=== PATIENT | female | born 1955 ===

== ENCOUNTER 2023-10-12 10:37 | Outpatient (REF) | payer MEDICAID, SELFPAY ==
[2023-10-12 10:42] LABS: Abs Immature Grans 0.05 10^3/uL (0.0-0.06); Absolute Basophil Count 0.05 10^3/uL (0.0-0.2); Absolute Eosinophil Count 0.02 10^3/uL (0.0-0.7); Absolute Lymphocyte Count 1.48 10^3/uL (1.2-3.4); Absolute Monocyte Count 1.55 10^3/uL (0.1-0.8); Absolute Neutrophil Count 3.42 10^3/uL (1.2-6.7); Basophils % 0.8 %; Eosinophils % 0.3 %; HCT 25.9 % (36.0-46.0); Immature Grans % 0.8 %; Lymphocytes % 22.5 %; MCH 26.8 pg (27.0-33.0); MCHC 30.9 % (32.0-36.0); MCV 87 fL (80-95); MPV 8.4 fL (8.0-11.0); Monocytes % 23.6 %; RBC 2.99 10^6/uL (3.93-5.22); RDW 20.5 % (11.7-14.6); RDW-SD 65.9 fL; WBC 6.57 10^3/uL (4.4-10.8)
[2023-10-12 11:09] LABS: ALT 10 U/L (14-59); AST 18 U/L (15-37); Albumin 2.1 g/dL (3.4-5.0); Alkaline Phosphatase 320 U/L (46-116); Anion Gap 6.1 mmol/L (3-11); BUN 16 mg/dL (7-18); Bilirubin, Total 0.53 mg/dL (0.2-1.0); CO2 29.9 mmol/L (21.0-32.0); CREATININE 0.7 mg/dL (0.55-1.02); Calcium 8.7 mg/dL (8.5-10.1); Chloride 97 mmol/L (98-107); Estimated GFR 94.15 (mL/min/1.73m2); Glucose 102 mg/dL (74-106); LDH 223 U/L (81-234); Sodium 133 mmol/L (136-145); Total Protein 6.6 g/dL (6.4-8.2); Uric Acid 4.3 mg/dL (2.6-6.0)
[2023-10-12 11:15] LABS: Iron 20 ug/dL (50-170); Total Iron Binding Capacity 209 ug/dL (250-450); Transferrin Sat 10 % (15-50)
[2023-10-12 11:30] LABS: Anisocytosis 2+; Diff Comment Agrees w/ Instrument; Hypochromasia 2+; Platelet Count 536 10^3/uL (130-400)
[2023-10-12 11:59] LABS: Ferritin 1278 ng/mL (8-252)
[2023-10-13 08:52] LABS: IgA 58 mg/dL (85-499); IgG 681 mg/dL (610-1616); IgM 1282 mg/dL (35-242)
== END 2023-10-12 10:38 | disposition home or self-care (01) ==
LOC: LBN 10:37
PROVIDERS: Visit Provider Internal Medicine Hematology & Oncology
DX: D50.9 Iron deficiency anemia, unspecified (principal); C85.80 Other specified types of non-Hodgkin lymphoma, unspecified site
CPT/HCPCS: 80053; 82784; 82728; 83540; 83550; 83615; 84550; 85025

== ENCOUNTER 2023-11-23 08:34 | Outpatient (CLI) | payer MEDICAID, SELFPAY ==
[2023-11-23 07:59] LABS: Abs Immature Grans 0.02 10^3/uL (0.0-0.06); Absolute Basophil Count 0.06 10^3/uL (0.0-0.2); Absolute Eosinophil Count 0.14 10^3/uL (0.0-0.7); Absolute Lymphocyte Count 0.83 10^3/uL (1.2-3.4); Absolute Neutrophil Count 3.36 10^3/uL (1.2-6.7); Basophils % 1.1 %; Eosinophils % 2.5 %; HCT 31.8 % (36.0-46.0); HGB 10.1 g/dL (11.2-15.7); Immature Grans % 0.4 %; Lymphocytes % 15.1 %; MCH 28.7 pg (27.0-33.0); MCHC 31.8 % (32.0-36.0); MCV 90 fL (80-95); MPV 7.7 fL (8.0-11.0); Neutrophils % 60.9 %; Platelet Count 459 10^3/uL (130-400); RBC 3.52 10^6/uL (3.93-5.22); RDW 16.5 % (11.7-14.6); WBC 5.51 10^3/uL (4.4-10.8)
[2023-11-23 08:25] LABS: ALT 8 U/L (14-59); AST 13 U/L (15-37); Albumin 2.6 g/dL (3.4-5.0); Alkaline Phosphatase 231 U/L (46-116); Anion Gap 8.5 mmol/L (3-11); BUN 8 mg/dL (7-18); Bilirubin, Total 0.34 mg/dL (0.2-1.0); CO2 27.5 mmol/L (21.0-32.0); CREATININE 0.6 mg/dL (0.55-1.02); Calcium 9.4 mg/dL (8.5-10.1); Chloride 98 mmol/L (98-107); Estimated GFR 97.71 (mL/min/1.73m2); Glucose 120 mg/dL (74-106); LDH 134 U/L (81-234); Potassium 4.5 mmol/L (3.5-5.1); Sodium 134 mmol/L (136-145); Total Protein 6.8 g/dL (6.4-8.2); Uric Acid 3.8 mg/dL (2.6-6.0)
[2023-11-23 08:26] LABS: Iron 50 ug/dL (50-170); Total Iron Binding Capacity 194 ug/dL (250-450); Transferrin Sat 26 % (15-50)
[2023-11-23 09:06] LABS: Ferritin 749 ng/mL (8-252)
== END 2023-11-23 08:35 | disposition home or self-care (01) ==
LOC: LBO 08:35
PROVIDERS: Visit Provider Internal Medicine Hematology & Oncology
DX: D50.0 Iron deficiency anemia secondary to blood loss (chronic) (principal); C85.80 Other specified types of non-Hodgkin lymphoma, unspecified site
CPT/HCPCS: 36415; 80053; 82728; 83540; 83550; 83615; 84550; 85025

== ENCOUNTER 2023-12-21 11:00 | Outpatient (CLI) | payer MEDICAID, SELFPAY ==
[2023-12-21 08:47] LABS: Abs Immature Grans 0.07 10^3/uL (0.0-0.06); Absolute Basophil Count 0.07 10^3/uL (0.0-0.2); Absolute Eosinophil Count 0.37 10^3/uL (0.0-0.7); Absolute Monocyte Count 0.96 10^3/uL (0.1-0.8); Absolute Neutrophil Count 2.35 10^3/uL (1.2-6.7); Basophils % 1.4 %; Eosinophils % 7.5 %; HCT 36.9 % (36.0-46.0); HGB 12.2 g/dL (11.2-15.7); Immature Grans % 1.4 %; Lymphocytes % 22.4 %; MCH 30.3 pg (27.0-33.0); MCHC 33.1 % (32.0-36.0); MCV 92 fL (80-95); MPV 8.2 fL (8.0-11.0); Monocytes % 19.5 %; Neutrophils % 47.8 %; Platelet Count 472 10^3/uL (130-400); RBC 4.02 10^6/uL (3.93-5.22); RDW 17.2 % (11.7-14.6); RDW-SD 58.7 fL; WBC 4.92 10^3/uL (4.4-10.8)
[2023-12-21 09:03] LABS: ALT 8 U/L (14-59); AST 16 U/L (15-37); Alkaline Phosphatase 187 U/L (46-116); Anion Gap 4.5 mmol/L (3-11); BUN 8 mg/dL (7-18); Bilirubin, Total 0.37 mg/dL (0.2-1.0); CO2 31.5 mmol/L (21.0-32.0); CREATININE 0.7 mg/dL (0.55-1.02); Calcium 9.6 mg/dL (8.5-10.1); Chloride 101 mmol/L (98-107); Estimated GFR 94.15 (mL/min/1.73m2); Glucose 98 mg/dL (74-106); Potassium 4.3 mmol/L (3.5-5.1); Sodium 137 mmol/L (136-145); Total Protein 6.7 g/dL (6.4-8.2)
[2023-12-21 09:12] LABS: Iron 97 ug/dL (50-170); Total Iron Binding Capacity 224 ug/dL (250-450); Transferrin Sat 43 % (15-50)
[2023-12-21 10:07] LABS: LDH 201 U/L (81-234); Magnesium 2.1 mg/dL (1.8-2.4); PHOSPHORUS 5.1 mg/dL (2.6-4.7); Uric Acid 4.4 mg/dL (2.6-6.0)
[2023-12-21 10:37] LABS: Ferritin 648 ng/mL (8-252)
== END 2023-12-21 11:01 | disposition home or self-care (01) ==
LOC: LBO 11:01
PROVIDERS: Visit Provider Internal Medicine Hematology & Oncology
DX: C85.80 Other specified types of non-Hodgkin lymphoma, unspecified site (principal); D50.0 Iron deficiency anemia secondary to blood loss (chronic)
CPT/HCPCS: 36415; 80053; 86850; 86900; 86901; 82728; 83540; 83550; 83615; 83735; 84100; 84550; 85025

== ENCOUNTER 2024-02-29 02:44 | Outpatient (CLI) | payer MEDICAID, SELFPAY ==
[2024-02-29 09:40] LABS: Abs Immature Grans 0.04 10^3/uL (0.0-0.06); Absolute Basophil Count 0.05 10^3/uL (0.0-0.2); Absolute Eosinophil Count 0.37 10^3/uL (0.0-0.7); Absolute Lymphocyte Count 1.06 10^3/uL (1.2-3.4); Absolute Neutrophil Count 2.97 10^3/uL (1.2-6.7); Eosinophils % 7.4 %; HGB 12.4 g/dL (11.2-15.7); Immature Grans % 0.8 %; Lymphocytes % 21.2 %; MCH 32.7 pg (27.0-33.0); MCHC 33.5 % (32.0-36.0); MCV 98 fL (80-95); MPV 8.7 fL (8.0-11.0); Neutrophils % 59.6 %; Platelet Count 234 10^3/uL (130-400); RBC 3.79 10^6/uL (3.93-5.22); RDW 14.9 % (11.7-14.6); RDW-SD 53.4 fL; WBC 4.99 10^3/uL (4.4-10.8)
[2024-02-29 10:07] LABS: ALT 18 U/L (14-59); AST 23 U/L (15-37); Alkaline Phosphatase 144 U/L (46-116); Anion Gap 7.6 mmol/L (3-11); BUN 23 mg/dL (7-18); Bilirubin, Total 0.42 mg/dL (0.2-1.0); CO2 30.4 mmol/L (21.0-32.0); CREATININE 0.8 mg/dL (0.55-1.02); Calcium 9.3 mg/dL (8.5-10.1); Chloride 105 mmol/L (98-107); Estimated GFR 80.21 (mL/min/1.73m2); Ferritin 698 ng/mL (8-252); Glucose 106 mg/dL (74-106); Potassium 4.1 mmol/L (3.5-5.1); Sodium 143 mmol/L (136-145); Total Protein 6.8 g/dL (6.4-8.2)
[2024-02-29 10:40] LABS: Iron 192 ug/dL (50-170); Total Iron Binding Capacity 261 ug/dL (250-450); Transferrin Sat 74 % (15-50)
== END 2024-02-29 02:45 | disposition home or self-care (01) ==
LOC: LBO 02:44
PROVIDERS: Visit Provider Internal Medicine Hematology & Oncology
DX: D50.0 Iron deficiency anemia secondary to blood loss (chronic) (principal)
CPT/HCPCS: 36415; 80053; 82728; 83540; 83550; 85025

== ENCOUNTER 2024-03-28 04:17 | Outpatient (CLI) | payer MEDICAID, SELFPAY ==
[2024-03-28 11:53] LABS: Absolute Basophil Count 0.05 10^3/uL (0.0-0.2); Absolute Eosinophil Count 0.23 10^3/uL (0.0-0.7); Absolute Lymphocyte Count 1.55 10^3/uL (1.2-3.4); Basophils % 1.6 %; Eosinophils % 7.5 %; HCT 33.3 % (36.0-46.0); HGB 11.3 g/dL (11.2-15.7); Lymphocytes % 50.3 %; MCH 33.3 pg (27.0-33.0); MCHC 33.9 % (32.0-36.0); MCV 98 fL (80-95); MPV 8.7 fL (8.0-11.0); Neutrophils % 14.6 %; Platelet Count 216 10^3/uL (130-400); RBC 3.39 10^6/uL (3.93-5.22); RDW 14.5 % (11.7-14.6); RDW-SD 51.9 fL; WBC 3.08 10^3/uL (4.4-10.8)
[2024-03-28 12:12] LABS: Absolute Neutrophil Count 0.45 10^3/uL (1.2-6.7)
[2024-03-28 12:22] LABS: ALT 12 U/L (14-59); AST 20 U/L (15-37); Alkaline Phosphatase 149 U/L (46-116); Anion Gap 7.5 mmol/L (3-11); BUN 30 mg/dL (7-18); Bilirubin, Total 0.43 mg/dL (0.2-1.0); CO2 34.5 mmol/L (21.0-32.0); CREATININE 0.9 mg/dL (0.55-1.02); Calcium 9.3 mg/dL (8.5-10.1); Chloride 99 mmol/L (98-107); Estimated GFR 69.64 (mL/min/1.73m2); Ferritin 483 ng/mL (8-252); Glucose 116 mg/dL (74-106); Potassium 3.2 mmol/L (3.5-5.1); Sodium 141 mmol/L (136-145)
[2024-03-28 12:43] LABS: Iron 88 ug/dL (50-170); Total Iron Binding Capacity 302 ug/dL (250-450); Transferrin Sat 29 % (15-50)
== END 2024-03-28 04:18 | disposition home or self-care (01) ==
LOC: LBO 04:17
PROVIDERS: Visit Provider Internal Medicine Hematology & Oncology
DX: D50.0 Iron deficiency anemia secondary to blood loss (chronic) (principal)
CPT/HCPCS: 36415; 80053; 82728; 83540; 83550; 85025

== ENCOUNTER 2024-03-28 13:08 | Outpatient (REF) | payer MEDICAID, SELFPAY ==
[2024-03-28 13:15] LABS: Abs Immature Grans 0.01 10^3/uL (0.0-0.06); Absolute Basophil Count 0.04 10^3/uL (0.0-0.2); Absolute Eosinophil Count 0.24 10^3/uL (0.0-0.7); Absolute Lymphocyte Count 1.81 10^3/uL (1.2-3.4); Absolute Monocyte Count 0.93 10^3/uL (0.1-0.8); Basophils % 1.1 %; Eosinophils % 6.8 %; HCT 33.5 % (36.0-46.0); HGB 11.5 g/dL (11.2-15.7); Immature Grans % 0.3 %; Lymphocytes % 51.6 %; MCH 33.4 pg (27.0-33.0); MCHC 34.3 % (32.0-36.0); MCV 97 fL (80-95); MPV 9.2 fL (8.0-11.0); Monocytes % 26.5 %; Neutrophils % 13.7 %; Platelet Count 234 10^3/uL (130-400); RBC 3.44 10^6/uL (3.93-5.22); RDW 14.5 % (11.7-14.6); RDW-SD 51.7 fL; WBC 3.51 10^3/uL (4.4-10.8)
[2024-03-28 13:51] LABS: Absolute Neutrophil Count 0.48 10^3/uL (1.2-6.7)
[2024-03-28 13:52] LABS: Diff Comment Diff Reviewed; RBC Morphology Normal
== END 2024-03-28 13:09 | disposition home or self-care (01) ==
LOC: LBN 13:08
PROVIDERS: Visit Provider Nurse Practitioner Adult Health
DX: C85.80 Other specified types of non-Hodgkin lymphoma, unspecified site (principal); D50.0 Iron deficiency anemia secondary to blood loss (chronic)
CPT/HCPCS: 85025